=== PATIENT | female | born 1980 | race Caucasian/White ===

== ENCOUNTER 2022-06-24 15:36 | Emergency (ER) | payer OTHER ==
[~2022-06-24] VITALS: Ht 152.4 cm; Wt 99.8 kg
[2022-06-24 15:51] VITALS: BP_SYST 129
--- NOTE | 2022-06-24 15:51 | NUR ---
Patient to ER bed H1 for evaluation. Side rails up.
--- NOTE | 2022-06-24 16:40 | NUR ---
ER DR. VILLALBA EXAMINING PT
[2022-06-24] MEDS ORDERED: KETOROLAC TROMETHAMINE 60 MG/2 ML VIAL IM ONE (16:45)
[2022-06-24] MEDS ORDERED: NAPR-690 PO (17:37)
[2022-06-24 18:00] VITALS: BP_SYST 129
--- NOTE | 2022-06-24 18:00 | NUR ---
Patient given written and verbal discharge instructions and verbalizes understanding. ER MD discussed with patient the results and treatment provided. Patient in stable condition. ID arm band removed. Rx of NAPROXEN given. Patient educated on pain management and to follow up with PMD. Pain Scale 0/10. Opportunity for questions provided and answered. Medication side effect fact sheet provided.
== END 2022-06-24 18:00 | disposition home or self-care (01) ==
LOC: SED 15:36
DX: S30.0XXA Contusion of lower back and pelvis, initial encounter (principal); J45.909 Unspecified asthma, uncomplicated; Z88.5 Allergy status to narcotic agent; Z79.899 Other long term (current) drug therapy; W22.8XXA Striking against or struck by other objects, initial encounter; Y93.K1 Activity, walking an animal; Y92.89 Other specified places as the place of occurrence of the external cause; Y99.8 Other external cause status
CPT/HCPCS: 99283; 72080; 96372; J1885